=== PATIENT | female | born 1960 | race Caucasian/White ===

== ENCOUNTER 2022-04-13 18:57 | Emergency (ER) | payer OTHER ==
[~2022-04-13] VITALS: Ht 167.6 cm; Wt 70.8 kg
[~2022-04-13 18:57] MED LIST: CIPRO500 MG PO; GYNE LOTRIMIN VG; KETO10TA2 PO; LEVSIN/SL0.125 MG SL; PAXIL20 MG; PEPCID40 MG PO; Paxil PO
== END 2022-04-14 00:22 | disposition home or self-care (01) ==
LOC: ER 18:57
DX: J40 Bronchitis, not specified as acute or chronic (principal)